=== PATIENT | female | born 1980 | race Caucasian/White ===

== ENCOUNTER → 2018-08-27 15:31 | Outpatient (CLI) | payer OTHER, SELFPAY ==
--- NOTE | 2018-08-27 15:35 | DI.RAD.S_ITS ---
PROCEDURE: XR TOE RT MIN 2V INDICATIONS: traumatic toenail avulsion TECHNIQUE: 3 views of the right toe(s) acquired. COMPARISON: None. FINDINGS: Bones: No fractures or dislocations. No suspicious bony lesions. No radiopaque foreign body seen. Soft tissues: Great toe nail avulsion seen a lateral view IMPRESSION: No fracture Avulsion of the great toenail Dictated by: Deep Garza M.D. on 08/27/2018 at 16:11 Approved by: Deep Garza M.D. on 08/27/2018 at 16:17
== END ==
PROVIDERS: PCP Family Medicine; Visit Provider Physician Assistant
DX: S91.201A Unspecified open wound of right great toe with damage to nail, initial encounter (principal); X58.XXXA Exposure to other specified factors, initial encounter
CPT/HCPCS: 73660